=== PATIENT | female | born 1975 | race Caucasian/White ===

== ENCOUNTER 2017-03-07 20:39 | Emergency (ER) | payer OTHER ==
--- NOTE | 2017-03-08 15:54 | ER ---
ADMIT: 03/07/2017 RM/LOC: ER [facility] MR#: [id number] [address] [address] BOWMANMARYELLEN [address] [place] [id number] Emergency Room Report SEX: F AGE: 42 : 1975 DATE: 03/07/2017 A 42-year-old, with complaints of burning in the back of her neck, cough, and congestion for the past 2 or 3 days. See T-sheet for remainder of history and physical. CBC is within normal limits. Chest x-ray is unremarkable. The patient diagnosed with an exacerbation of asthma and URI. Given prescription for Medrol Dosepak. Encouraged to follow up with primary doctor if not better by Thursday. Todd Da Silva MD/ luigi JOB #: [id number] CC: Jean Paul Juarez MD, Attending Physician Jean Paul Cage DO, Family Physician
[2017-06-01] MEDS ORDERED: CALTRATE-600 W600 MG PO (07:43)
[2017-06-01] MEDS ORDERED: WELLBUTRIN XL150 MG PO (07:43)
[2017-06-01] MEDS ORDERED: CYMBALTA60 MG PO (07:43)
[2017-06-01] MEDS ORDERED: TOPIRAMATE100 MG PO (07:43)
[2017-06-01] MEDS ORDERED: DAILY MULTIPLE1 EAC1 PO (07:43)
[2017-06-01] MEDS ORDERED: ADDERALL XR 1515 MG PO (07:43)
[2017-06-01] MEDS ORDERED: OMEPRAZOLE40 MG PO (07:44)
[2017-06-01] MEDS ORDERED: VITAMIN D10000 UNIT PO (07:44)
[2017-06-01] MEDS ORDERED: ZYRTEC DPS10 MG PO (07:44)
[2017-06-01] MEDS ORDERED: MONTELUKAST SOD10 MG PO (07:44)
[2017-06-01] MEDS ORDERED: BIOTIN1 M1 PO (07:44)
[2017-06-01] MEDS ORDERED: COLLAGEN PLUS1 EACH PO (07:45)
[2017-06-01] MEDS ORDERED: EXCEDRIN MIGRA1 EACH PO (07:46)
[2017-06-01] MEDS ORDERED: MAALOX DPS30 ML PO (07:46)
[2017-06-01] MEDS ORDERED: FLONASE 0.05% D16 GM NS (07:46)
[2017-06-01] MEDS ORDERED: DUONEB DPS3 ML IH (07:47)
[2017-06-01] MEDS ORDERED: TYLENOL DPS325 MG PO (07:47)
[2017-06-01] MEDS ORDERED: MUCINEX600 MG PO (07:48)
[2017-06-01] MEDS ORDERED: DELTASONE DPS20 MG PO (07:48)
[2017-06-01] MEDS ORDERED: [UNRECOGNIZED DRUG - OTHER] PO (07:48)
[2017-06-01] MEDS ORDERED: [UNRECOGNIZED DRUG - OTHER] PO (07:50)
== END 2017-03-07 21:55 | disposition home or self-care (01) ==
LOC: ER 20:39
DX: J45.901 Unspecified asthma with (acute) exacerbation (principal); J06.9 Acute upper respiratory infection, unspecified; Z88.1 Allergy status to other antibiotic agents; Z88.8 Allergy status to other drugs, medicaments and biological substances; Z79.899 Other long term (current) drug therapy

== ENCOUNTER 2017-05-26 06:34 | Inpatient (IN) | payer OTHER ==
[~2017-05-26] VITALS: Ht 167.6 cm; Wt 101.1 kg
--- NOTE | 2017-05-26 17:11 | ER ---
ADMIT: 05/26/2017 RM/LOC: ER [facility] MR#: [id number] [address] [address] MARYELLEN BOWMAN [address] [place] [address] Emergency Room Report SEX: F AGE: 42 : 1975 DATE: 05/26/2017 ADDENDUM: A 42-year-old, white female, coming in with productive cough, greenish discharge from her nose also bringing up greenish sputum. She has been on several antibiotics in the last several days. She has had a rhinoplasty in part, history of fibromyalgia, irritable bowel, GERD, depression, some anxiety. Clinically, she sounds like she has rhonchi when I looked at her. She can bring up purulent sputum on demand she says, but I do not see an obvious pneumonia on chest x-ray. Clinically, she has all the conditions, especially since her white count is 11.5. She has a CRP of 4.84, a lactic 2.2, chemistries otherwise look okay. She does not need fluid resuscitation at this time, however, we did start her on Zosyn and vancomycin. She also had CTs as well, which showed pretty much diffuse sinusitis. Advised, understands hospitalist admission. CONDITION ON DISCHARGE: Fair. Jordan Rodriguez MD/ luigi JOB #: [id number] CC: Jean Paul Juarez MD, Attending Physician Jean Paul Cage DO, Family Physician
--- NOTE | 2017-06-01 07:09 | CO ---
ADMIT: 05/26/2017 RM/LOC: 502 [facility] MR#: [id number] [address] [address] MARYELLEN BOWMAN [address] [place] [id number] Consultation SEX: F AGE: 42 : 1975 DATE OF CONSULTATION: 05/28/2017 ATTENDING PHYSICIAN: Ifeoma Lugo CONSULTING PHYSICIAN: Miguel A Collazo MD CHIEF COMPLAINT: Respiratory infection with bronchoconstriction. HISTORY OF PRESENT ILLNESS: Maryellen is 42 years old. She developed worsening in breathing and respiratory distress. Has history of chronic rhinosinusitis. She has undergone sinus surgeries on 2 occasions, most recently in 2013. CT scanning of the paranasal sinuses was obtained at admission; I have reviewed that CT, which shows evidence of pansinusitis with active infection in the maxillaries as evidenced by air fluid and patchy opacities in the ethmoids. Sinusotomies appear patent. Does not appear to have obstructive sinus disease. PHYSICAL EXAMINATION: LUNGS: Maryellen is frequently coughing. She has mild expiratory intermittent stridor, but lungs are clear. She has no pulmonary wheeze or rales. HEENT: Her nose is congested. Oropharynx erythematous. Small amount of postnasal purulent discharge. No cervical adenopathy. Ears; canals, TMs, middle ears clear. PROCEDURE: Fiberoptic examination of the nose. Nasopharynx, hypopharynx, and larynx showed mucopurulence in the middle meatus bilaterally, appears to arise left ethmoid, right ethmoid, and right maxillary. Obtained specimen from the right side for C and S. Nasopharynx and oropharynx, erythematous. Hypopharynx and larynx, mild edema. No obstructive changes, polyps or lesions. Good vocal cord mobility. Subglottic trachea clear. IMPRESSION: 1. Sinusitis, acute exacerbation of chronic rhinosinusitis. 2. Bronchoconstriction, reactive airway secondary to sinusitis. RECOMMENDATION: We will continue present IV antibiotic pending results of culture and intravenous Decadron, continue cough suppressants. I will continue to follow during her hospital stay. Miguel A Collazo MD/ luigi JOB #: [id number] CC: Ifeoma Lugo, Attending Physician Ifeoma Lugo, Family Physician ADMIT: 05/26/2017 RM/LOC: 502 [facility] MR#: [id number] [address] [address] MARYELLEN BOWMAN [address] [place] [address] Consultation SEX: F AGE: 42 : 1975 Jean Paul Cage DO
[2017-06-01] MEDS ORDERED: TOPIRAMATE100 MG PO (07:43)
[2017-06-01] MEDS ORDERED: WELLBUTRIN XL150 MG PO (07:43)
[2017-06-01] MEDS ORDERED: ADDERALL XR 1515 MG PO (07:43)
[2017-06-01] MEDS ORDERED: DAILY MULTIPLE1 EAC1 PO (07:43)
[2017-06-01] MEDS ORDERED: CALTRATE-600 W600 MG PO (07:43)
[2017-06-01] MEDS ORDERED: CYMBALTA60 MG PO (07:43)
[2017-06-01] MEDS ORDERED: ZYRTEC DPS10 MG PO (07:44)
[2017-06-01] MEDS ORDERED: OMEPRAZOLE40 MG PO (07:44)
[2017-06-01] MEDS ORDERED: VITAMIN D10000 UNIT PO (07:44)
[2017-06-01] MEDS ORDERED: BIOTIN1 M1 PO (07:44)
[2017-06-01] MEDS ORDERED: MONTELUKAST SOD10 MG PO (07:44)
[2017-06-01] MEDS ORDERED: COLLAGEN PLUS1 EACH PO (07:45)
[2017-06-01] MEDS ORDERED: MAALOX DPS30 ML PO (07:46)
[2017-06-01] MEDS ORDERED: FLONASE 0.05% D16 GM NS (07:46)
[2017-06-01] MEDS ORDERED: EXCEDRIN MIGRA1 EACH PO (07:46)
[2017-06-01] MEDS ORDERED: TYLENOL DPS325 MG PO (07:47)
[2017-06-01] MEDS ORDERED: DUONEB DPS3 ML IH (07:47)
[2017-06-01] MEDS ORDERED: DELTASONE DPS20 MG PO (07:48)
[2017-06-01] MEDS ORDERED: MUCINEX600 MG PO (07:48)
[2017-06-01] MEDS ORDERED: [UNRECOGNIZED DRUG - OTHER] PO (07:48)
[2017-06-01] MEDS ORDERED: [UNRECOGNIZED DRUG - OTHER] PO (07:50)
--- NOTE | 2017-06-02 11:39 | DS ---
ADMIT: 05/26/2017 RM/LOC: 502 [facility] MR#: [id number] 2620 [facility] [address] [place], [place] [address] MARYELLEN BOWMAN [address] [place] [address] Discharge Summary SEX: F AGE: 42 : 1975 ADMISSION DATE: 05/26/2017 DISCHARGE DATE: 05/28/2017 ADMISSION DIAGNOSES: 1. Chronic sinusitis. 2. Upper airway cough syndrome. 3. History of fibromyalgia/anxiety/depression. 4. Latent tuberculosis. 5. Mild lactic acidosis. 6. Low risk for deep vein thrombosis. 7. Gastroesophageal reflux disease. DISCHARGE DIAGNOSES: 1. Acute on chronic sinusitis progressing. 2. Upper airway cough syndrome, improved. 3. History of fibromyalgia/anxiety/depression, stable. 4. Latent tuberculosis, stable. 5. Mild lactic acidosis, resolved. 6. Gastroesophageal reflux disease, stable. SERVICE: Hospital Medicine with Ifemoa Lugo MD and Byron Carrasco MD. REFERRING PHYSICIAN: Emergency Department. CONSULT: Miguel A Collazo MD with ENT. PROCEDURES: CT sinuses consistent with paranasal sinus disease. PERTINENT HISTORY AND PHYSICAL EXAM: Mrs. Bowman is a 42-year-old, white female, who presented to the Emergency Department with persistent symptoms of sinusitis including sore throat, postnasal drip, and laryngitis. She had been under the care of Dr. Cage the end of March and was started on doxycycline and Hydromet for chronic sinusitis. She stated she saw no improvement after the course of that treatment, returned on 04/28, saw a different provider, started on cefdinir and prednisone taper as well as Tessalon Perles and DuoNebs. She saw no improvement after this course as well. She continued to have productive cough with green sputum. Return to her primary care provider on 05/09. Given another course of prednisone taper for 14 days. Has been taking Benadryl at night, using saline nasal spray flushes and Tessalon Perles without improvement. She has had history of multiple rhinoplasty and sinus surgeries for chronic sinusitis. She also has history of fibromyalgia, depression, anxiety, asthma, GERD, IBS, vitamin D deficiency, Raynaud's and latent tuberculosis. Completed INH treatment. HOSPITAL COURSE: CT sinuses consistent with paranasal sinus disease. ENT, Dr. Collazo, consulted. IV Unasyn started. The patient improved overnight on Unasyn, nasal flush and steroids. ENT requests follow up with the patient in 2-3 weeks after acute sinus infection resolved. ADMIT: 05/26/2017 RM/LOC: 502 [facility] MR#: [id number] [facility] [address] [address] MARYELLEN BOWMAN [address] [place] [address] Discharge Summary SEX: F AGE: 42 : 1975 DISCHARGE CONDITION: Good. DISPOSITION: Home. MEDICATIONS: 1. Prednisone taper 20 mg p.o. t.i.d. x3 days, then 20 mg p.o. b.i.d. x3 days, then 20 mg p.o. daily x3 days, then stop. 2. Guaifenesin 600 mg p.o. b.i.d. 3. Moxifloxacin 400 mg p.o. daily x10 days. 4. Benadryl 50 mg cap p.o. b.i.d. p.r.n. itch or congestion. 5. Cymbalta 120 mg tab p.o. every night. 6. Singulair 10 mg tab p.o. every night. 7. Therapeutic multivitamin 1 tab p.o. every night. 8. Topamax 100 mg p.o. b.i.d. 9. Wellbutrin 150 mg p.o. every night. 10.Flonase 0.05% 16 g nasal, two sprays b.i.d. 11.[place] nasal spray q.1 hour p.r.n. nasal wash. 12.Excedrin migraine two tabs p.o. q.6 hours p.r.n. headache. 13.Maalox 30 mL p.o. q.6 hours p.r.n. acid reflux. 14.Hydromet 5 mg/1.5 mg 1 tab p.o. q.4 hours p.r.n. nasal congestion. 15.Tylenol 650 mg tab p.o. q.4 hours p.r.n. fever or pain. 16.DuoNebs 3 mL vial inhaled q.4 hours p.r.n. x1 box of nebules. INSTRUCTIONS: Diet regular. Code status full. FOLLOWUP: Follow up with PCP in 3-5 days or as needed fever or chills. Follow up with Dr. Collazo in 2-3 weeks as ordered. Perla Claudio APRN / Byron Carrasco MD / vdg JOB #: [id number] CC: Ifeoma Lugo MD, Attending Physician Ifeoma Lugo MD, Family Physician
--- NOTE | 2017-06-04 12:00 | HP ---
ADMIT: 05/26/2017 RM/LOC: 502 [facility] MR#: [id number] 2620 [facility] [address] [place] [id number] MARYELLEN BOWMAN [address] [place] [address] History and Physical SEX: F AGE: 42 : 1975 DATE OF SERVICE: 05/26/2017 CHIEF COMPLAINT: Cough. HISTORY OF PRESENT ILLNESS: The patient is a 42-year-old white female who was admitted to the hospital today from the Emergency Department with a chronic sinusitis. The patient states her symptoms began at the end of March with a sore throat and postnasal drip and some laryngitis. She states she went into see Dr. Cage in the end of March and was started on doxycycline and Hydromet. She saw no improvement after this course of treatment. She went in again and on 04/28, and saw another provider and was started on cefdinir and prednisone taper as well as some benzonatate and DuoNeb. She saw no improvement after this course of treatment as well. She continued to have productive cough with green sputum. On 05/09, she returned to her provider and was given another course of prednisone 60 mg taper x14 days. During that time, she also used ProAir t.i.d. She has also been using Benadryl at bedtime, saline nasal spray, benzonatate and neti pot treatments at home to help control her symptoms with no improvement. She states that her symptoms have never improved and she continues to have sinus pressure, ear pain with crackling and popping to bilateral ears. She states her ears feel muffled with some mild decreased hearing in both ears. She complains of some right-sided forehead pain and some pain behind her right eye. She has headache and photophobia. She does also complain of some shortness of breath, which she does state is worse with exertion. The patient has a history of asthma as well. The patient does complain of pain at 10/10 with cough, this is mostly to her throat. She has had a reported weight loss of approximately 20 pounds over the past month, however, she does report prior to that she had weight gain of approximately 60 pounds over the past year due to previous treatment course of tuberculosis medication treatment. PAST MEDICAL HISTORY: Fibromyalgia, depression, anxiety, anhedonia, asthma, latent TB with completed INH treatment, GERD, IBS, vitamin D deficiency, Raynaud's. PAST SURGICAL HISTORY: Tonsillectomy in 1982; rhinoplasty in 1994; rhinoplasty with revision in 2013; hysterectomy in 2016; right collar bone removed, partial 2000; [place] procedure; D and C x2 in 2000 and 2006; tubal ligation in 2013. FAMILY HISTORY: Mother with history of drug abuse, asthma, COPD. Father PTSD, VT with stents, prostate, asthma, COPD. The patient has 3 children, whom she reports are all healthy. SOCIAL HISTORY: Marital status, the patient is single. Lives with her significant other. EMPLOYMENT STATUS: Working nurse at an assisted living facility. Tobacco, denies any use. Alcohol, denies any use. Drugs, denies any use. ADMIT: 05/26/2017 RM/LOC: 502 [facility] MR#: [id number] [address] [place] [phone] [place] [address] History and Physical SEX: F AGE: 42 : 1975 ALLERGIES: ZITHROMAX; CLARITHROMYCIN; LYRICA "MAKES CRAZY"; SEASONAL ALLERGIES; HYPERSENSITIVITY TO NARCOTICS, MAKES HER BLOOD PRESSURE LOW. MEDICATIONS: 1. Cymbalta 120 mg at bedtime for depression. 2. Adderall XR 15 mg at bedtime for ADHD. 3. Topiramate 100 mg twice daily. 4. Wellbutrin XL 150 mg at bedtime for depression. 5. Multivitamin daily at bedtime. 6. Caltrate plus D 600 mg at bedtime. 7. Vitamin D 10,000 units at bedtime. 8. Biotin at bedtime. 9. Zyrtec 10 mg at bedtime for allergies. 10.Singulair 10 mg at bedtime for allergies. 11.Omeprazole 40 mg for gastric reflux at bedtime. 12.Super Collagen C 3 tablets at bedtime. 13.Tessalon Perles 200 mg for cough 3 times daily as needed. 14.Excedrin Headache 1000/130 mg for headache every 6 hours as needed. REVIEW OF SYSTEMS: Complete review of systems is negative other than those stated in HPI. PHYSICAL EXAMINATION: GENERAL: The patient is a pleasant 42-year-old female who appears stated age. She is well-developed, and well-nourished healthy appearing in no acute apparent distress. She is resting comfortably in bed. SKIN: Warm and dry without any lesions, open sores, rashes. No jaundice. HEENT: Head normocephalic and atraumatic. PERRLA. EOM intact. No scleral icterus. Mucous membranes are pink and moist. Does have cobblestoning to posterior pharynx. No obvious discharge from external auditory canal. Tenderness to palpation of forehead and over maxillary sinuses. NECK: Supple. Nontender. No thyromegaly or lymphadenopathy. No palpable masses. Trachea is midline. HEART: Regular rate and rhythm. S1 and S2 without murmurs, rub, gallop, or click. LUNGS: Clear throughout. Respirations are equal and nonlabored. No accessory muscle use. No rhonchi, crackles, or wheezes. ABDOMEN: Soft and nontender. No guarding with palpation. Bowel sounds are positive x4 quadrants. EXTREMITIES: No clubbing or cyanosis. Pulses positive bilateral upper and lower extremities. NEUROLOGICAL: Motor and sensation intact with no deficits noted. She is alert and oriented x4. PSYCHIATRIC: Intact recent and remote memory. Does appear slightly anxious. Normal judgment and insight. LABORATORY DATA: Blood cultures pending. WBC 11.5, hemoglobin 12.4, hematocrit 38.5, and platelets 336. Lactic acid 2.2. Sodium 139, potassium ADMIT: 05/26/2017 RM/LOC: 502 [facility] MR#: [id number] 2620 [facility] [address] [place] [phone] BOWMANMARYELLEN [address] [place] [address] History and Physical SEX: F AGE: 42 : 1975 3.4, chloride 104, BUN 12, glucose 77, creatinine 1.1. Liver enzymes within normal limits. Procalcitonin was less than 0.05. CT head without contrast has no acute intracranial findings. Paranasal sinus disease, was further discussed with sinus CT. Sinus CT without contrast showed paranasal sinus disease, correlate for sinusitis. Chest x-ray was negative. ASSESSMENT AND PLAN: 1. Chronic sinusitis, CT finding consistent with paranasal sinus disease. ENT consulted. IV Unasyn started. We will obtain follow up CBC in a.m. the patient admitted to 5th floor for observation. We will also start the patient on Benadryl 50 mg p.o. at bedtime, try antihistamine. 2. Upper airway cough syndrome. Started on Flovent nasal steroid 2 puffs b.i.d. We will also obtain sputum culture with culture and sensitivity. 3. History of fibromyalgia/anxiety/depression. We will continue home medications. 4. Latent tuberculosis. Treatment completed last month. 5. Mild lactic acidosis. Repeat lactic acid in 4 hours. We will start on normal saline at 75 an hour x1 liter. 6. Low-risk for deep venous thrombosis. We will ambulate frequently. 7. Gastroesophageal reflux disease. We will continue the patient on home dose of omeprazole. Thank you for allowing us to participate in the care of this patient. Marilee Hernández APRN / Ifeoma Lugo MD / luigi JOB #: [id number] CC: Ifeoma Lugo, Attending Physician Ifeoma Lugo, Family Physician
== END 2017-05-28 13:50 | disposition home or self-care (01) | DRG 153 ==
LOC: ER 06:34 → 5MS 09:55
PROVIDERS: ADMIT Internal Medicine
PROC: 3E0234Z Introduction of Serum, Toxoid and Vaccine into Muscle, Percutaneous Approach (ICD-10-PCS; principal; 2017-05-28)
PROC: 0CJS8ZZ Inspection of Larynx, Via Natural or Artificial Opening Endoscopic (ICD-10-PCS; principal; 2017-05-28)
DX: J01.40 Acute pansinusitis, unspecified (principal); E87.2 Acidosis; J32.4 Chronic pansinusitis; M79.7 Fibromyalgia; K58.9 Irritable bowel syndrome, unspecified; K21.9 Gastro-esophageal reflux disease without esophagitis; E55.9 Vitamin D deficiency, unspecified; F32.9 Major depressive disorder, single episode, unspecified; Z23 Encounter for immunization; I73.00 Raynaud's syndrome without gangrene; R76.11 Nonspecific reaction to tuberculin skin test without active tuberculosis; F41.9 Anxiety disorder, unspecified; J45.909 Unspecified asthma, uncomplicated; Z82.49 Family history of ischemic heart disease and other diseases of the circulatory system